=== PATIENT | male | born 1940 | race Caucasian/White ===

== ENCOUNTER → 2018-10-18 | Outpatient (CLI) | payer OTHER, BC | LOC: CAT 11:32 | DX: J98.4 Other disorders of lung (principal); I25.10 Atherosclerotic heart disease of native coronary artery without angina pectoris; I70.0 Atherosclerosis of aorta; I77.811 Abdominal aortic ectasia ==

== ENCOUNTER → 2018-10-31 | Outpatient (CLI) | payer OTHER, BC | LOC: ULTRA 10:03 | DX: I77.811 Abdominal aortic ectasia (principal) ==